=== PATIENT | male | born 1950 | race Caucasian/White ===

== ENCOUNTER → 2018-01-07 11:52 | Outpatient (CLI) | payer OTHER, MEDICARE, SELFPAY ==
--- NOTE | 2018-01-07 12:10 | RAD_ITS ---
STUDY: X-RAY CHEST REASON FOR EXAM: Male, 67 years old. Increased dyspnea. Prior right lung surgery. TECHNIQUE: PA and lateral views of the chest. COMPARISON: Comparison is made with prior study dated June 03, 2015. FINDINGS: Small to moderate size left pleural effusion with underlying infiltration and/or atelectasis. Stable mild degree of increased markings at the right lung base suggesting mild scarring. Normal size heart. Normal mediastinum and renetta. Normal visualized pulmonary arteries. There is atherosclerotic calcification of the aortic arch with tortuosity. There are diffuse degenerative changes of the visualized thoracic spine. Prior fusion of the lower cervical spine. Normal visualized ribs, clavicles, and shoulders. There is no demonstrated abnormality of the visualized soft tissue structures of the upper abdomen. RAD/Chest PA and Lateral IMPRESSION: Left pleural effusion with underlying infiltration and/or atelectasis. Electronically Signed: Remy Hdez MD at 12:44 EDT Tel [phone], Service support ,
[2018-01-07 12:56] LABS: Allen Test POS; Base Excess 8 mmol/L (-2 to +2); Blood Gas Specimen Type ART; O2 Delivery Device Room Air; PO2 45 mmHG (75-100); SITE R Radial; SO2 78 % (95-99); Total Carbon Dioxide 35 mmol/L; pCO2 56.7 mmHg (35-45); pH 7.37 (7.35-7.45)
== END ==
LOC: LAB 11:57 → PSN 12:11
PROVIDERS: Family Provider Internal Medicine; PCP Internal Medicine; Visit Provider Internal Medicine Pulmonary Disease
DX: C34.90 Malignant neoplasm of unspecified part of unspecified bronchus or lung (principal); R06.00 Dyspnea, unspecified
CPT/HCPCS: 36600; 71046; 82803

== ENCOUNTER → 2018-01-13 13:40 | Outpatient (CLI) | payer OTHER, MEDICARE, SELFPAY ==
--- NOTE | 2018-01-13 13:49 | CT_ITS ---
STUDY: CT CHEST WITHOUT CONTRAST REASON FOR EXAM: Male, 67 years old. Pleural effusion, short of breath x3 weeks, history of lung cancer with left lobectomy, radiation and chemotherapy. RADIATION DOSAGE (If Supplied By Facility): CTDIvol = ( 20.15 ) mGy, DLP = ( 719.97 ) mGycm TECHNIQUE: Transaxial imaging was performed without the administration of intravenous contrast material. Individualized dose optimization techniques were used for this CT. COMPARISON: June 21, 2015. FINDINGS: The previous identified spiculated mass within the superior segment right lower lobe is no longer evident. There is a small region of fibrosis in this region. The aerated right lung appears hyperexpanded. The patient appears status post left lower lobectomy. There is significant atelectasis of the inferior aspects of the remaining left lung. There is a large left pleural effusion. The thyroid appears unremarkable. There are multiple, multistation mediastinal lymph nodes. Some of these are partially fatty replaced. None of these appear pathologic by size criteria. The left hilum is obscured with the atelectatic lung and pleural fluid previously described. Calcified plaque involves coronary arteries and visualized aorta. Otherwise, Normal appearing heart and pericardium. There is no acute osseous abnormality. There is no suspicious lytic or blastic osseous pathology. Diffuse spinal degenerative changes and degenerative costochondral and chondrosternal changes are evident. Throughout the upper abdomen there is visualization of a 1.3 cm vague hypodensity within the posterior segment right hepatic lobe as well as mild nonspecific perinephric stranding. CT/Chest without Contrast IMPRESSION: Spiculated mass within the superior segment right lower lobe is no longer evident. Hyperexpanded aerated lungs suggesting COPD. Partial left lower lobectomy. Potentially loculated left pleural effusion of moderate size. Presence of Empyema cannot be determined on this nonenhanced exam. Significant atelectasis of inferior aspects of the remaining left lung. No pathologic adenopathy. However, the pleural effusion and left lung findings previously described obscure the left hilum. Atherosclerotic peripheral vascular disease. Atherosclerotic coronary artery disease. Hepatic hypodensity most compatible with a cyst or small hemangioma. Recommendation: Recommend continued surveillance. Additionally, consider left thoracentesis for diagnostic purposes. Electronically Signed: Pito Lorenz MD at 15:34 EDT , Service support ,
== END ==
PROVIDERS: Family Provider Internal Medicine; PCP Internal Medicine; Visit Provider Internal Medicine Pulmonary Disease
DX: J90 Pleural effusion, not elsewhere classified (principal); Z85.118 Personal history of other malignant neoplasm of bronchus and lung
CPT/HCPCS: 71250

== ENCOUNTER → 2018-01-24 14:38 | Outpatient (CLI) | payer OTHER, MEDICARE, SELFPAY ==
--- NOTE | 2018-01-24 14:55 | RAD_ITS ---
STUDY: X-RAY CHEST REASON FOR EXAM: Male, 67 years old. Pleural effusion. Thoracentesis last week TECHNIQUE: PA and lateral views of the chest. COMPARISON: 01/07/2018 FINDINGS: Again noted is reaccumulation of moderate to large left pleural effusion with left lower lobe airspace disease. Mild diffuse interstitial edema. There is mild cardiac enlargement. Normal mediastinum and renetta. Normal visualized pulmonary arteries. Normal visualized aortic arch and descending thoracic aorta. There are diffuse degenerative changes of the visualized thoracic spine. There is degenerative osteoarthritis of the bilateral shoulders. There is no demonstrated abnormality of the visualized soft tissue structures of the upper abdomen. RAD/Chest PA and Lateral IMPRESSION: Reaccumulation of moderate to large left pleural effusion. Background of pulmonary edema Electronically Signed: Santos Pinto DO at 17:31 EDT Tel , Service support ,
== END ==
PROVIDERS: Family Provider Internal Medicine; PCP Internal Medicine; Visit Provider Internal Medicine Pulmonary Disease
DX: J90 Pleural effusion, not elsewhere classified (principal)
CPT/HCPCS: 71046